=== PATIENT | male | born 1985 | race Caucasian/White ===

== ENCOUNTER 2017-05-25 16:04 | Emergency (ER) | payer OTHER ==
--- NOTE | 2017-05-25 17:04 | RAD ---
HISTORY: Chest pain COMPARISONS: None VIEWS: 4: Frontal dual-energy and lateral views of the chest. FINDINGS: CARDIOMEDIASTINAL SILHOUETTE: The cardiomediastinal silhouette is normal. CHE: The che are normal. PLEURA: The costophrenic angles are sharp. No pleural abnormalities are noted. LUNG PARENCHYMA: The lungs are clear. ABDOMEN: The upper abdomen is clear. There is no subphrenic gas. BONES AND SOFT TISSUES: No bone or soft tissue abnormalities are noted. OTHER: None. IMPRESSION: NO ACTIVE CARDIOPULMONARY DISEASE.
[2017-05-25 17:28] LABS: ABS Basophils 0 10^3/ul (0-0.2); ABS Eosinophils 0 10^3/ul (0-0.6); ABS Lymphocytes 1.2 10^3/ul (1.0-4.8); ABS Monocytes 0.5 10^3/ul (0-0.8); ABS Neutrophils 6.3 10^3/ul (1.5-7.7); ABS Nucleated RBC 0.01 10^3/ul; Eosinophil % 0.2 % (0-6); Hematocrit 44 % (42-52); Lymphocyte % 14.8 % (25-47); Mean Corpuscular HGB Conc 35 g/dl (31-36); Mean Corpuscular Hemoglobin 31 pg (27-31); Mean Corpuscular Volume 90 fL (80-94); Mean Platelet Volume 8 um3 (7.4-10.4); Nucleated Red Blood Cells % 0.1; Platelet Count 259 10^3/ul (150-450); Red Blood Count 4.83 10^6/ul (4.0-5.4); Red Cell Distribution Width 13 % (10.5-15); White Blood Count 8.1 10^3/ul (3.5-10.8)
[2017-05-25 17:43] LABS: EGFR Non-African American 67.2 (>60)
[2017-05-25 18:39] VITALS: BP 138/81
--- NOTE | 2017-06-14 19:07 | ED ---
Ra Napoles Thomas, scribed for Alonso Randall MD on 05/25/17 at 1637 . HPI Chest Pain - HPI Summary HPI Summary: The patient is a 31 y/o M presenting to the ED complaining of central chest pain for the last few days. The pain radiates to his back. The pain is intermittent. The pain is described as tight and pressure. The pain is rated 1/ 10 in the ED. The pain is aggravated by exertion. It is alleviated by nothing. The patient has treated the pain with nothing prior to arrival. Patient denies SOB, cough, fever, chills, abdominal pain, extremity numbness, and edema. He drinks 6-9 beers a day. - History of Current Complaint Chief Complaint: EDChestPainROMI Hx Obtained From: Patient Onset/Duration: Started Days Ago - a few, Still Present Timing: Intermittent Current Severity: Mild Pain Intensity: 1 Pain Scale Used: 0-10 Numeric Chest Pain Location: Discrete at: - central chest Chest Pain Radiates: Yes Chest Pain Radiates To:: Back Character: Pressure/Squeezing, Tightness Aggravating Factor(s): Exertion Alleviating Factor(s): Nothing Associated Signs and Symptoms: Positive: Other: - Chest pain; NEGATIVE: SOB, fever, edema, extremity numbness, abdominal pain, PMH/Surg Hx/FS Hx/Imm Hx Previously Healthy: Yes Endocrine/Hematology History: Denies: Hx Diabetes Cardiovascular History: Denies: Hx Congestive Heart Failure Infectious Disease History: No Infectious Disease History: Denies: Traveled Outside the [place] in Last 30 Days - Family History Known Family History: Positive: Cardiac Disease - grandfather [place] at 57, grandfather [place] in 30s - Social History Alcohol Use: Daily Alcohol Amount: beer and wine 6-9 full glasses/day Substance Use Type: Reports: None Hx Tobacco Use: Yes Smoking Status (MU): Current Some Day Smoker Review of Systems Negative: Fever, Chills Positive: Chest Pain Negative: Shortness Of Breath, Cough Negative: Abdominal Pain Negative: Edema Negative: Numbness - extremity All Other Systems Reviewed And Are Negative: Yes Physical Exam - Summary Physical Exam Summary: Appearance: Well-appearing, Well-nourished Skin: Warm, Dry, No rash Eyes: Normal, PERRL, EOMI, sclera anicteric ENT: Normal Neck: Supple, nontender Respiratory: Clear to auscultation Cardiovascular: S1, S2, no murmur, no rub, no gallop Abdomen: Soft, nontender, no organomegaly Bowel sounds: Present Musculoskeletal: Normal, Strength/ROM Intact, no edema, pulses symmetrical Neurological: Normal, A&Ox3, cranial nerves II-XII WNL, follows commands, gait not tested, sensation intact to pin and light touch Psychiatric: affect normal, behavior appropriate, dressed appropriately, judgment intact Triage Information Reviewed: Yes Vital Signs On Initial Exam: Initial Vitals Temp Pulse Resp BP Pulse Ox 99.8 F 112 20 144/88 99 05/25/17 16:09 05/25/17 16:09 05/25/17 16:09 05/25/17 16:09 05/25/17 16:09 Vital Signs Reviewed: Yes Diagnostics - Vital Signs Vital Signs Temp Pulse Resp BP Pulse Ox 05/25/17 16:12 111 11 99 05/25/17 16:11 144/88 05/25/17 16:09 99.8 F 112 20 144/88 99 - Laboratory Result Diagrams: 05/25/17 17:17 05/25/17 17:17 Lab Statement: Any lab studies that have been ordered have been reviewed, and results considered in the medical decision making process. - Radiology CXR Xray Interpretation: No Acute Changes - No active cardiopulmonary disease is noted. Radiology Interpretation Completed By: Radiologist - EKG 16:10 Cardiac Rate: Tachycardia EKG Rhythm: Sinus Tachycardia - at 111 BPM EKG Interpretation: Normal EKG Chest Pain Course/Dx - Course Assessment/Plan: The patient presents with chest pain. Bloodwork, EKG, and CXR are without acute abnormalities. Patient will be discharged home with follow up by primary care and diagnosis of atypical chest pain. - Diagnoses Provider Diagnoses: Atypical chest pain Discharge - Discharge Plan Condition: Good Disposition: HOME Patient Education Materials: Chest Pain (ED) Referrals: Gustavo Crawford MD [Primary Care Provider] - The documentation as recorded by the Ra stevenson Thomas accurately reflects the service I personally performed and the decisions made by me, Alonso Randall MD.
== END 2017-05-25 18:36 | disposition home or self-care (01) ==
LOC: ED 16:04
DX: R07.89 Other chest pain (principal); Z72.0 Tobacco use
CPT/HCPCS: 36415; 71020; 80053; 84484; 85025; 85379; 93005; 99282